=== PATIENT | male | born 1960 | race Caucasian/White ===

== ENCOUNTER → 2019-03-18 | Outpatient (CLI) | payer MEDICARE ==
--- NOTE | 2019-03-18 15:19 | Diagnostic Imaging Report ---
INDICATION: Bilateral thumb pain. TIME OF EXAM: 02:54 p.m. Multiple views bilateral thumbs were obtained. Alignment is normal bilaterally. No fractures are seen. There is no dislocation. There are some mild triscaphe joint degenerative changes bilaterally. IMPRESSION: Mild degenerative changes in the carpus. No acute bony abnormality is detected. Dictated by: Dictated on workstation # [id number]
== END ==
LOC: RAD FS 14:47
PROVIDERS: ATTEND Family Medicine
DX: M19.042 Primary osteoarthritis, left hand (principal); M19.041 Primary osteoarthritis, right hand

== ENCOUNTER 2019-11-01 12:57 | Emergency (ER) | payer MEDICARE ==
[~2019-11-01] VITALS: Ht 185 cm; Wt 97.6 kg
[2019-11-01] MEDS ORDERED: LIDOCAINE 1% INJ 20 ML 20 ML VIAL ONE (13:04)
--- NOTE | 2019-11-01 13:19 | ED Upper Extremity ---
General Chief Complaint: Laceration Stated Complaint: RT MIDDLE FINGER LAC Source: patient Exam Limitations: no limitations History of Present Illness Date Seen by Provider: Nov 01, 2019 Time Seen by Provider: 13:05 Initial Comments The patient is a pleasant 59-year-old male presents for evaluation of a laceration to the right third finger. He states that he was cutting something into a trash can when a piece of glass cut his finger on the extensor surface. He has full flexion and extension of the finger and denies any other injuries or complaints. He is not sure of his tetanus status of this will need to be updated today. He is alert and oriented 4, calm, and appears to be in no distress at this time. Onset: just prior to arrival Severity: mild Pain/Injury Location: left 3rd finger Method of Injury: other (cut on glass) Allergies and Home Medications Allergies Coded Allergies: No Known Drug Allergies (Unverified , 11/01/19) Patient Home Medication List Home Medication List Reviewed: Yes Review of Systems Constitutional: no symptoms reported EENTM: no symptoms reported Respiratory: no symptoms reported Cardiovascular: no symptoms reported Gastrointestinal: no symptoms reported Genitourinary: no symptoms reported Musculoskeletal: no symptoms reported Skin: other (laceration to right 3rd finger) Psychiatric/Neurological: No Symptoms Reported All Other Systems Reviewed Negative Unless Noted: Yes Past Wacjlxp-Tdpwrc-Znnrse Hx Past Med/Social Hx: Reviewed Nursing Past Med/Soc Hx Patient Social History Alcohol Use: Denies Use Recreational Drug Use: No Smoking Status: Current Everyday Smoker 2nd Hand Smoke Exposure: Yes Recent Hopitalizations: No Physical Abuse: No Sexual Abuse: No Mistreated: No Fear: No Seasonal Allergies Seasonal Allergies: No Past Medical History Surgeries: No Respiratory: No Cardiac: Yes High Cholesterol Neurological: No Genitourinary: No Gastrointestinal: No Musculoskeletal: Yes Chronic Back Pain Endocrine: No HEENT: No Cancer: No Psychosocial: No Integumentary: No Blood Disorders: No Adverse Reaction/Blood Tranf: No Physical Exam Vital Signs Vital Signs - First Documented 11/01/19 13:09 Temp 35.5 Pulse 105 Resp 20 B/P (MAP) 146/87 (106) Pulse Ox 97 Capillary Refill : Height, Weight, BMI Height: '" Weight: lbs. oz. 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, no motor/sensory deficits, alert, normal mood/affect, oriented x 3 Skin: normal color, warm/dry, other (3 cm laceration to the extensor surface of the right third finger over the PIP joint, no tendon injury seen, no fracture seen, no vascular injury) Procedures/Interventions Wound Location: Upper Extremities Other Wound Location right 3rd finger extensor surface over PIP joint Wound Length (cm): 2.5 Wound's Depth, Shape: superficial Wound Explored: clean Irrigated w/ Saline (ccs): 200 Volume Anesthetic (ccs): 3 Suture: Ethlion Suture Size: 4-0 Number of Sutures: 5 Layer Closure?: 1 Number Deep Layer Sutures: 0 Progress/Results/Core Measures Results/Orders My Orders Orders - ROBYN GUZMAN DO Lidocaine 1% Inj 20 Ml (Xylocaine 1% Inj (11/01/19 13:04) Vital Signs/I&O 11/01/19 13:09 Temp 35.5 Pulse 105 Resp 20 B/P (MAP) 146/87 (106) Pulse Ox 97 Progress Progress Note : Progress Note @1335 - patient tolerated the repair very well. His tetanus has been updated. Advise close follow-up with PCP for wound check in 2 days and return to the emergency Department immediately for new or worsening symptoms. The sutures should be removed in 7-10 days. The patient expresses verbal understanding and agreement is stable for discharge. Departure Impression Primary Impression: Finger laceration Disposition: 01 HOME, SELF-CARE Condition: Stable Departure-Patient Inst. Decision time for Depature: 13:35 Referrals: SELFELIANA MD (PCP/Family) Primary Care Physician Patient Instructions: Laceration Repair With Stitches (DC) Add. Discharge Instructions: Your sutures should be removed in 7-10 days. You may return here or may follow- up with your doctor to have these removed. Keep the wound clean and dry. Return to the emergency Department immediately for concern over infection, new or worsening symptoms. ROBYN GUZMAN DO Nov 01, 2019 13:19 POS
[2019-11-01 14:00] VITALS: BP 130/77
[2019-11-01] MEDS ORDERED: TETANUS,DIPTH,PERTUSS P/F (BOOSTRIX) 0.5 ML VIAL IM ONE (14:00)
== END 2019-11-01 14:00 | disposition home or self-care (01) ==
LOC: EDUNIT# 12:57 → ER FS 12:59
DX: S61.212A Laceration without foreign body of right middle finger without damage to nail, initial encounter (principal); E78.00 Pure hypercholesterolemia, unspecified; F17.200 Nicotine dependence, unspecified, uncomplicated; Z23 Encounter for immunization; W25.XXXA Contact with sharp glass, initial encounter
CPT/HCPCS: 12002; 90715

== ENCOUNTER → 2021-10-01 | Outpatient (CLI) | payer MEDICARE ==
--- NOTE | 2021-10-01 11:57 | Diagnostic Imaging Report ---
PROCEDURE: MRI lumbar spine. TECHNIQUE: Multiplanar, multisequence MRI of the lumbar spine was performed without contrast. INDICATION: Degenerative disc disease, back pain COMPARISON: None available. FINDINGS: 5 lumbar type vertebral bodies are assumed. Alignment of the lumbar spine is well maintained without significant anterolisthesis or retrolisthesis. Moderate superior endplate compression deformity is identified without significant marrow edema. Therefore, this is felt to be chronic in nature. Minimal endplate irregularity and minimal degenerative marrow edema is noted about L5/S1 and L1/L2. 9 mm round T1 and T2 hypointense lesion is noted within the L4 vertebral body. Bone marrow signal intensity is otherwise unremarkable. The conus medullaris is unremarkable and terminates at the appropriate location. The paraspinal soft tissues are unremarkable. T12/L1: No significant central canal or neural foraminal stenosis. L1/L2: Minimal facet joint degenerative changes. Tiny left foraminal to far lateral disc protrusion. There is resulting minimal left neural foraminal stenosis. No right neural foraminal stenosis or central canal stenosis. L2/L3: Mild facet joint degenerative changes. No significant central canal or neural foraminal stenosis. L3/L4: Mild facet joint degenerative changes. There is resulting minimal left neural foraminal stenosis. No significant right neural foraminal stenosis or central canal stenosis. L4/L5: Mild facet joint degenerative changes. Minimal disc desiccation and disc space height loss. Tiny diffuse disc bulge. There is resulting mild to moderate trefoil type central canal stenosis with effacement of bilateral lateral recesses. Mild bilateral neural foraminal stenosis, left greater than right. L5/S1: Mild disc space height loss. Small diffuse disc bulge with superimposed right paracentral disc protrusion. There is resulting minimal central canal stenosis, though there is significant stenosis of the right lateral recess with contact and displacement of the traversing right S1 nerve roots. Mild bilateral neural foraminal stenosis. IMPRESSION: Multilevel degenerative changes as described above. This includes a disc protrusion at L5/S1 which is abutting and impinging the traversing right S1 nerve root. Abnormal 9 mm lesion within the L4 vertebral body. This is nonspecific. This may simply relate to a bone island, though sclerotic metastatic disease is not excluded. If prior imaging is available to demonstrate multiple years of stability for this lesion, that would be beneficial. Alternatively, if there is concern for sclerotic metastatic disease, then a nuclear medicine bone scan would help to further evaluate. Chronic superior endplate compression deformity of L2 without acute osseous fracture. Dictated by: Dictated on workstation # [id number]
== END ==
LOC: RAD 09-19 10:15
PROVIDERS: ATTEND Family Medicine
DX: M51.26 Other intervertebral disc displacement, lumbar region (principal); M51.27 Other intervertebral disc displacement, lumbosacral region; M48.061 Spinal stenosis, lumbar region without neurogenic claudication; M47.816 Spondylosis without myelopathy or radiculopathy, lumbar region; M48.07 Spinal stenosis, lumbosacral region; M43.8X6 Other specified deforming dorsopathies, lumbar region; M89.9 Disorder of bone, unspecified
CPT/HCPCS: 72148

== ENCOUNTER 2023-05-06 22:28 | Emergency (ER) | payer MEDICARE ==
[~2023-05-06] VITALS: Ht 185 cm; Wt 90.6 kg
[2023-05-06 22:35] VITALS: BP 126/88
[2023-05-06] MEDS ORDERED: RX-NEO/POLYB/HC OTIC (CORTISPORIN) SUSP 10 ML BTL OT STA (22:53)
--- NOTE | 2023-05-06 23:13 | ED EENT ---
History of Present Illness General Chief Complaint: Foreign Body Stated Complaint: R EAR FOREIGN BODY,DIZZY,SOB Nursing Triage Note: Patient ambulatory to room [facility]06 w c/o foreign object in right ear. Patient states he was out fishing and a bug flew in his ear. Patient shaking head and hitting ear as he felt it was "digging deeper." Blood visible on outside of right ear. Source: patient Exam Limitations: no limitations History of Present Illness Date Seen by Provider: May 06, 2023 Time Seen by Provider: 22:35 Initial Comments This 62-year-old gentleman presents to the emergency room in distress due to an active bug in the right ear. He has some bleeding and bruising from digging at the ear with his fingers Allergies and Home Medications Allergies Coded Allergies: No Known Drug Allergies (Unverified , 11/01/19) Patient Home Medication List Home Medication List Reviewed: Yes Review of Systems Review of Systems Constitutional: no symptoms reported Eyes: No Symptoms Reported Ears: See HPI Nose: no symptoms reported Mouth: no symptoms reported Throat: no symptoms reported Respiratory: no symptoms reported Cardiovascular: no symptoms reported Gastrointestinal: no symptoms reported Musculoskeletal: no symptoms reported Skin: no symptoms reported Neurological: No Symptoms Reported Hematologic/Lymphatic: No Symptoms Reported Immunological/Allergic: no symptoms reported Past Nmfcpnf-Lcvqmd-Dtrhun Hx Seasonal Allergies Seasonal Allergies: No Past Medical History Surgeries: No Respiratory: No Cardiac: Yes High Cholesterol Neurological: No Genitourinary: No Gastrointestinal: No Musculoskeletal: Yes Chronic Back Pain Endocrine: No HEENT: No Cancer: No Psychosocial: No Integumentary: No Blood Disorders: No Adverse Reaction/Blood Tranf: No Physical Exam Vital Signs Vital Signs - First Documented 05/06/23 22:35 Temp 36.9 Pulse 76 Resp 20 B/P (MAP) 126/88 (101) Pulse Ox 93 O2 Delivery Room Air Height, Weight, BMI Height: '" Weight: lbs. oz. kg; 26.00 BMI Method: General Appearance: WD/WN, mild distress Ears: right ear TM red, right ear other (Dried blood at the ear canal. External ear bruised. 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 ONCE ONCE OP 05/07/23 00:00 05/06/23 23:54 DC 05/06/23 22:45 4 ML Vital Signs/I&O 05/06/23 22:35 Temp 36.9 Pulse 76 Resp 20 B/P (MAP) 126/88 (101) Pulse Ox 93 O2 Delivery Room Air Blood Pressure Mean: 101 Progress Progress Note : Progress Note Tetracaine drops were placed in the right ear. The insect was then drawn out using a Owen suction catheter. Ear was reexamined. Cortisporin drops were applied. Departure Impression Primary Impression: Foreign body in ear Qualified Codes: T16.1XXA - Foreign body in right ear, initial encounter Disposition: HOME, SELF-CARE Condition: Improved Departure-Patient Inst. Decision time for Depature: 23:12 Referrals: SELFELIANA MD (PCP/Family) Primary Care Physician Patient Instructions: Foreign Body in Ear (DC) Add. Discharge Instructions: Placed 3 to 4 drops of the provided eardrops in the right ear 3-4 times a day until irritation resolves. Do not place any other objects including Q-tips into the ear. Return to care if you have worsening symptoms. All discharge instructions reviewed with patient and/or family. Voiced understanding. LISA NOVA MD May 06, 2023 23:13
[2023-05-07] MEDS ORDERED: TETRACAINE 0.5% OPHTH SOLN 4 ML BTL (SINGLE DOSE ONLY) OP ONE
[2023-05-07] MEDS ORDERED: TETRACAINE 0.5% OPHTH SOLN 4 ML BTL (SINGLE DOSE ONLY) ONE (00:31)
== END 2023-05-06 23:15 | disposition home or self-care (01) ==
LOC: EDUNIT# 22:28 → ER FS 22:33
DX: T16.1XXA Foreign body in right ear, initial encounter (principal); Z28.311 Partially vaccinated for COVID-19

== ENCOUNTER → 2023-05-13 | Outpatient (CLI) | payer MEDICARE | LOC: CARD 10:56 | PROVIDERS: ATTEND Internal Medicine Cardiovascular Disease | DX: I25.10 Atherosclerotic heart disease of native coronary artery without angina pectoris (principal); I11.9 Hypertensive heart disease without heart failure | CPT/HCPCS: 93306 ==

== ENCOUNTER → 2023-07-16 | Outpatient (CLI) | payer MEDICARE ==
[~2023-07-16] MED LIST: CATHETER FLUSH 10 ML SYR IVP PRN; REGADENOSON 0.4 MG/5 ML SYR IV ONE
[2023-07-16 13:12] VITALS: BP 134/76
--- NOTE | 2023-07-16 16:34 | Cardiology Stress Test Report ---
Stress Test Report Date of Procedure/Referring: Date of Procedure: Jul 16, 2023 PCP Parish Lopez MD Admitting Physician Admitting Physician: Attending Physician: Philip Torres MD Baseline Heart Rate: 71 Baseline Blood Pressure: Blood Pressure Systolic: 134 Blood Pressure Diastolic: 76 Baseline Vitals Vital Signs Date Time Temp Pulse Resp B/P (MAP) Pulse Ox O2 Delivery O2 Flow Rate FiO2 07/16/23 13:12 79 134/76 (95) Baseline EKG: Baseline EKG: NSr Summary After explaining the procedure to the patient, he signed a consent and then brought to the stress nuclear laboratory. Patient received 0.4 mg Lexiscan for stress test, ECG, heart rate and blood pressure were monitored continuously. Resting and stress dose of radio tracer were injected, imaging was acquired and reviewed in short axis, horizontal long axis and vertical long axis views. TID: 1.17 SSS: 3 SDS: 3 EF: 66 Patient was unable to exercise beyond 3 minutes and 15 seconds achieved only 63% of maximal expected heart rate, test was terminated and converted to Lexiscan Myoview stress test Patient tolerated Lexiscan well Diaphragmatic attenuation with typical male pattern, no significant ischemia or infarction noted on SPECT images Normal left ventricular size, ejection fraction 66% Copy Copies To 1: PARISH LOPEZ MD, BASHAR J MD Jul 16, 2023 16:34
== END ==
LOC: CARD 10:55
PROVIDERS: ATTEND Internal Medicine Cardiovascular Disease
DX: R07.9 Chest pain, unspecified (principal)
CPT/HCPCS: 78452; 93017; A9502